=== PATIENT | male | born 1965 | race Caucasian/White ===

== ENCOUNTER → 2018-08-31 11:57 | Outpatient (CLI) | payer OTHER, SELFPAY ==
[2018-08-31 12:44] LABS: Uric Acid 6.8 mg/dL (3.5-8.5)
== END ==
PROVIDERS: PCP Internal Medicine; Visit Provider Internal Medicine
DX: M10.9 Gout, unspecified (principal)
CPT/HCPCS: 36415; 84550

== ENCOUNTER → 2021-03-05 14:32 | Outpatient (ROUT) | payer OTHER, SELFPAY ==
[2021-03-05 15:35] LABS: COVID19 -Nasal RAPID Negative (Negative)
== END ==
PROVIDERS: Visit Provider Physician Assistant
DX: Z20.822 Contact with and (suspected) exposure to COVID-19 (principal)
CPT/HCPCS: 87635

== ENCOUNTER → 2022-02-25 11:08 | Outpatient (CLI) | payer OTHER, SELFPAY ==
[2022-02-25 16:23] LABS: COVID19 -Nasal RAPID Negative (Negative)
== END ==
PROVIDERS: PCP Physician Assistant; Visit Provider Surgery
DX: Z01.812 Encounter for preprocedural laboratory examination (principal); Z20.822 Contact with and (suspected) exposure to COVID-19
CPT/HCPCS: 87635; C9803

== ENCOUNTER 2022-02-26 06:45 | Day surgery (SDC) | payer OTHER, SELFPAY ==
[2022-02-21 11:05] VITALS: BMI 32.1
[2022-02-26] VITALS (8 sets, daily range): BP systolic 134–155; BP diastolic 88–101; PULSE 72–100; RESP 14–27; TEMP 36.2–36.9; O2SAT 93–98; BMI 32.1
[2022-02-26] MEDS: LACTATED RINGERS 1,000 ML 42 ML IV (07:30)
[2022-02-26] MEDS: ACETAMINOPHEN 325 MG TABLET 975 MG PO (07:30)
--- NOTE | 2022-02-26 07:46 | PM.PREOP ---
Pre-operative Note COVID-19 COVID-19 status: Negative Result date/Date tested (Pos, Neg/Pending): 02/25/22 Interval Note History & Physical reviewed/Exam performed by Physician: Yes Changes to H&P: No ASA Class (for procedural sedation): II
[2022-02-26] MEDS: CEFAZOLIN 2 GM/100 ML PREMIX 100 ML IV (07:53)
[2022-02-26] MEDS: BUPIVACAINE 0.5% W/ EPI (PF) 30 ML VIAL INJ (08:12)
--- NOTE | 2022-02-26 08:14 | SUR.OPER ---
Supine on padded OR bed, head on pillow, arms secured on padded arm boards at <90 degrees abduction, legs uncrossed, safety belt at thigh, tape over blanket over lower legs.
--- NOTE | 2022-02-26 09:02 | PM.OP.1 ---
Operative Date/Time/Diagnoses Date of procedure: 02/26/22 Time of procedure: 09:02 Pre-op diagnosis: Umbilical hernia Post-op diagnosis: same Procedure & Clinicians Procedure: Open umbilical hernia repair with mesh Same procedure as scheduled: Yes Surgeon: Gary Hill Anesthesia Type: General Operative Notes Procedure in detail: Ancef was administered. The patient was brought to the operating room, placed on the table in the supine position and general anesthesia was induced with LMA. The abdomen was prepped and draped in the usual fashion. A time-out was performed. A 5 cm curvilinear incision was made inferior to the umbilicus. The hernia sac was dissected free from the surrounding subcutaneous adipose tissue. The sac was dissected off the umbilical stalk using a combination of cautery, sharp and blunt dissection. The hernia sac was dissected free from the fascial ring and allowed to drop back down into the abdomen. The sac was not opened. The fascia was then closed transversely with multiple interrupted 0 Ethibond sutures. The subcutaneous adipose tissue was cleared off of the anterior sheath circumferentially about 2 cm in each direction. A piece of polypropylene mesh was trimmed to fit over the fascial closure and secured with Tisseel. Once the Tisseel was dried the umbilical skin was tacked down to the mesh with a single 3-0 Vicryl stitch. The skin was closed with multiple interrupted 3-0 Vicryl dermal sutures followed by a running 4 Monocryl subcuticular closure. Steri-Strips were applied and an abdominal binder was applied. Post-operative Condition: stable Disposition: PACU
[2022-02-26] MEDS: ONDANSETRON 4 MG/2 ML INJ IV (09:06)
[2022-02-26] MEDS: OXYCODONE IR 5 MG TABLET PO (09:19)
== END 2022-02-26 09:53 | disposition home or self-care (01) ==
PROVIDERS: PCP Physician Assistant; Referring Provider Surgery; Visit Provider Surgery
PROC: (CPT 49585; principal; 2022-02-26 07:45)
DX: K42.9 Umbilical hernia without obstruction or gangrene (principal); I10 Essential (primary) hypertension; E78.5 Hyperlipidemia, unspecified
CPT/HCPCS: 49585; J0690; J1100; J1885; J2250; J2405; J2704; J3010

== ENCOUNTER → 2022-03-12 15:49 | Outpatient (CLI) | payer OTHER, SELFPAY ==
[2022-03-12 16:50] LABS: COVID19 -Nasal RAPID Negative (Negative)
== END ==
PROVIDERS: PCP Physician Assistant; Visit Provider Surgery
DX: Z01.812 Encounter for preprocedural laboratory examination (principal); Z20.822 Contact with and (suspected) exposure to COVID-19
CPT/HCPCS: 87635; C9803

== ENCOUNTER 2022-03-14 07:03 | Day surgery (SDC) | payer OTHER, SELFPAY ==
--- NOTE | 2022-03-14 | PATH_ITS ---
[facility] Accession Number: [id number] . 01 Material submitted: . PART A: colon - CECAL POLYP PART B: colon - ASCENDING COLON POLYP PART C: colon - DESCENDING COLON POLYP . 01 Diagnosis: A. Cecal Polyp, Biopsy: Tubular adenoma. . B. Ascending Colon Polyp, Biopsy: Sessile serrated adenoma. . C. Descending Colon Polyp, Biopsy: Tubular adenoma. MRV 03/20/2022 1315 Local . 01 Electronically signed: . Zoila Velasco MD, Pathologist NPI- [id number] . 01 Gross description: . Part A: CECAL POLYP: Received in formalin are 3 fragment(s) of bustos, soft tissue measuring 0.2 x 0.2 x 0.2 cm to 0.4 x 0.2 x 0.2 cm submitted entirely in 1 cassette(s) Part B: ASCENDING COLON POLYP: Received in formalin is 1 fragment(s) of bustos, soft tissue measuring 0.8 x 0.7 x 0.5 cm submitted entirely in 1 cassette(s) Part C: DESCENDING COLON POLYP: Received in formalin is 1 fragment(s) of bustos, soft tissue measuring 0.7 x 0.3 x 0.3 cm submitted entirely in 1 cassette(s) /JOANNA 03/19/2022 1859 Local . 01 Pathologist provided ICD-10: D12.0, D12.2, D12.4 . 01 CPT . 757387, 648667, 405116 Specimen Comment: A courtesy copy of this report has been sent to [phone] Performed at: 01 [facility] [address] [place] [address] [address], [place], [place] [id number] MD Felipe Navarro MD Phone: [phone]
[2022-03-14 07:22] VITALS: BP 156/89; PULSE 72; RESP 18; TEMP 36.6; O2SAT 97; BMI 33.5
[2022-03-14] MEDS: LACTATED RINGERS 1,000 ML 200 ML IV (07:35)
--- NOTE | 2022-03-14 08:23 | PM.HP.1 ---
History of Present Illness History of Present Illness Date Patient Seen: 03/14/22 Time Patient Seen: 08:23 Chief complaint: SCREENING COLONOSCOPY W/POSS BX Narrative: Alvaro Miller is a 56-year-old man who has never had a colonoscopy before. He has no known family history of colon cancer. Patient History Medical History (Updated 03/14/22 @ 08:23 by Gary Hill MD) Arthritis Gout Hyperlipemia Hypertension Surgical History H/O elbow surgery Family & Social History Family History Mother Hypertension Brother Hypertension Diabetes mellitus Grandfather Diabetes mellitus Grandmother Stroke Social History: household members spouse,significant other Tobacco & Substance use: Smoking Status Former smoker alcohol intake current alcohol intake frequency a few times a week Substance Use Type does not use Meds Home Medications and Allergies Home Medications Medication Instructions Recorded Confirmed Type lisinopril 10 mg tablet 10 mg PO DAILY 02/20/22 03/14/22 History rosuvastatin 20 mg tablet 20 mg PO DAILY 02/20/22 03/14/22 History Allergies Allergy/AdvReac Type Severity Reaction Status Date / Time No Known Drug Allergies Allergy Verified 03/14/22 07:20 Exam Vital Signs (past 8 hours): - 03/14/22 07:22 Temperature 97.8 F Pulse Rate 72 Respiratory Rate 18 Blood Pressure 156/89 H Pulse Oximetry 97 Oxygen Delivery Method Room Air Oxygen Flow Rate 0 Oxygen Delivery Method Room Air Oxygen Flow Rate 0 Const General: healthy appearing Assessment & Plan Assessment and plan (1) Colon cancer screening: Status: Acute Plan We reviewed the risks and benefits of colonoscopy for colon cancer screening and he would like to proceed. Time Spent With Patient Critical Care time: I spent a total of [] minutes of critical care time on this patient's care today; this time is exclusive of procedural time.
[2022-03-14] MEDS: fentaNYL 100 MCG/2 ML INJ 175 MCG IV (08:40)
[2022-03-14] MEDS: MIDAZOLAM 5 MG/5 ML VIAL 8 MG IV (08:40)
--- NOTE | 2022-03-14 08:58 | PM.OP.COLON ---
Operative Date/Time/Diagnoses Date of procedure: 03/14/22 Time of procedure: 08:59 Pre-op diagnosis: Colon cancer screening Post-op diagnosis: same Procedure & Clinicians Study performed: Colonoscopy Same procedure as scheduled: Yes Surgeon: Gary Hill Procedure Notes Procedure in detail: Surgeon: Gary Hill MD Procedure: The patient was brought to the endoscopy suite, placed in left lateral decubitus position. The patient was connected to monitoring devices. A time-out was performed. Sedation was administered. Once the patient was adequately sedated, a digital rectal exam was performed and was normal. The scope was then inserted and advanced to the cecum where the appendiceal orifice was identified and photographed. The scope was then slowly withdrawn over greater than 6 minutes. The mucosa was thoroughly inspected. There was a small 5 mm polyp in the cecum close to the appendiceal orifice. This was removed with a cold snare sent as cecal polyp. There was a 1 cm flat polyp in the ascending colon removed with a hot snare. There was a 6 mm flat polyp in the descending colon removed with hot snare. There was scattered sigmoid diverticulosis. The scope was retroflexed in the rectum. No other abnormalities were noted. The scope was straightened and removed. The patient was awakened and brought to recovery. Versed: 8 mg Fentanyl: 175 mcg EBL: 5 mL Findings: 5 mm polyp in the cecum, 1 cm polyp in the ascending colon, 6 mm polyp in the descending colon. Scope withdrawal time: 14 Sedation minutes: 23 Post-procedure Disposition: PACU
[2022-03-14 09:02] VITALS: BP 126/77; PULSE 68; RESP 14; TEMP 36.8; O2SAT 98
[2022-03-14 09:07] VITALS: BP 146/95; PULSE 74; RESP 15; O2SAT 98
[2022-03-14 09:12] VITALS: BP 145/95; PULSE 70; RESP 18; O2SAT 98
== END 2022-03-14 10:19 | disposition home or self-care (01) ==
PROVIDERS: PCP Physician Assistant; Referring Provider Surgery; Visit Provider Surgery
PROC: 0DJD8ZZ Inspection of Lower Intestinal Tract, Via Natural or Artificial Opening Endoscopic (ICD-10-PCS; CPT 45378; principal; 2022-03-14 08:30)
DX: Z12.11 Encounter for screening for malignant neoplasm of colon (principal); K57.30 Diverticulosis of large intestine without perforation or abscess without bleeding; D12.0 Benign neoplasm of cecum; D12.2 Benign neoplasm of ascending colon; D12.4 Benign neoplasm of descending colon
CPT/HCPCS: 45385; 99152; J2250; J3010